=== PATIENT | male | born 1960 | race Hispanic/Latino ===

== ENCOUNTER 2019-12-02 17:48 | Emergency (ER) | payer MEDICAID ==
[2019-12-02 18:01] VITALS: BP 144/89
--- NOTE | 2019-12-02 18:05 | Emergency Department Report ---
Blank Doc - Documentation Documentation: 59-year-old male that presents with chest congestion, fatigue, cough. This initial assessment/diagnostic orders/clinical plan/treatment(s) is/are subject to change based on patient's health status, clinical progression and re- assessment by fellow clinical providers in the ED. Further treatment and workup at subsequent clinical providers discretion. Patient/guardians urged not to elope from the ED as their condition may be serious if not clinically assessed and managed. Initial orders include: 1- Patient sent to [facility] for further evaluation and treatment 2- CXR
--- NOTE | 2019-12-02 19:12 | XRay Report ---
CHEST PA AND LATERAL VIEWS INDICATION: cough. COMPARISON: None. FINDINGS: Support devices: None. Heart: Within normal limits. Lungs/Pleura: No acute pulmonary or pleural findings. There is a punctate round metallic foreign body anterior left lower thorax. This could be a fiducial marker, correlate clinically. IMPRESSION: 1. No acute findings. Signer Name: Dallas Mares MD Signed: 12/02/2019 7:08 PM Workstation Name: [id number]
== END 2019-12-02 22:30 | disposition left against medical advice (07) ==
LOC: ED 17:48
DX: R05 Cough (principal); R09.89 Other specified symptoms and signs involving the circulatory and respiratory systems; R53.83 Other fatigue; Z53.21 Procedure and treatment not carried out due to patient leaving prior to being seen by health care provider
CPT/HCPCS: 71046

== ENCOUNTER 2019-12-14 15:32 | Emergency (ER) | payer MEDICAID ==
[2019-12-14 15:40] VITALS: BP 136/87
--- NOTE | 2019-12-14 16:18 | XRay Report ---
RIGHT FOREARM RADIOGRAPH 2 VIEWS INDICATION / CLINICAL INFORMATION: right foream/wrist injury COMPARISON: None available. FINDINGS: BONES / JOINT(S): There is a mildly displaced fracture of the distal radial metaphysis. No definite i ntra-articular extension identified on these projections, though dedicated wrist radiographs may bett er assess. Mildly displaced ulnar styloid avulsion fracture. SOFT TISSUES: Soft tissue swelling about the wrist. ADDITIONAL FINDINGS: None. Signer Name: Melissa Foley MD Signed: 12/14/2019 4:14 PM Workstation Name: [id number]
--- NOTE | 2019-12-14 16:34 | Emergency Department Report ---
ED Upper Extremity Inj HPI - General Chief Complaint: Extremity Injury, Upper Stated Complaint: RIGHT ARM INJURY Time Seen by Provider: 12/14/19 16:02 Source: patient Mode of arrival: Ambulatory Limitations: No Limitations - History of Present Illness Initial Comments: 59-year-old male presents to the emergency room complaining of right wrist pain and swelling after a fall while in the garden. Patient states that he had fallen back and try to brace himself with his right hand. Patient reports he has a past medical history of kidney and liver transplant and is currently on CellCept and Prograf. Patient denies hitting his head or having loss of consciousness. MD Complaint: Injury to:: right, wrist -: This afternoon Other Extremity Injury: Wrist: Right Handedness: right Place: home Severity scale (0 -10): 8 Improves With: immobilization Worsens With: immobilization Context: fall Associated Symptoms: denies other symptoms - Related Data Home Medications Medication Instructions Recorded Confirmed Last Taken Aspirin [Aspirin BABY CHEW TAB] 81 mg PO QDAY 11/15/14 12/20/15 1 Day Ago ~12/19/15 Escitalopram [Lexapro] 10 mg PO DAILY 11/15/14 12/20/15 1 Day Ago ~12/19/15 Tacrolimus [Prograf] 1 mg PO Q12H 11/15/14 12/20/15 1 Day Ago ~12/19/15 Metoprolol [Lopressor] 25 mg PO DAILY 12/20/15 12/20/15 1 Day Ago ~12/19/15 Multivitamin with Iron 1 tab PO DAILY 12/20/15 12/20/15 1 Day Ago [Multivitamins with Iron] ~12/19/15 Mycophenolate [Cellcept] 500 mg PO BID 12/20/15 12/20/15 1 Day Ago ~12/19/15 Previous Rx's Medication Instructions Recorded Last Taken Type Cyclobenzaprine [Flexeril] 10 mg PO TID PRN #10 tablet 12/20/15 Unknown Rx HYDROcodone/APAP 5-325 [[place] 1 each PO Q6HR PRN #14 tablet 12/20/15 Unknown Rx 5/325] HYDROcodone/APAP 10-325 [[place] 1 each PO Q8HR PRN #12 tablet 12/14/19 Unknown Rx 10-325 mg TAB] Allergies Allergy/AdvReac Type Severity Reaction Status Date / Time codeine Allergy Hives Verified 11/15/14 15:38 ED Review of Systems ROS: Stated complaint: RIGHT ARM INJURY Other details as noted in HPI ED Past Medical Hx - Past Medical History Previous Medical History?: Yes Hx Hypertension: Yes Additional medical history: 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 - Surgical History Past Surgical History?: Yes Additional Surgical History: liver and right kidney transplant - Social History Smoking Status: Current Every Day Smoker - Medications Home Medications: Home Medications Medication Instructions Recorded Confirmed Last Taken Type Aspirin [Aspirin BABY CHEW TAB] 81 mg PO QDAY 11/15/14 12/20/15 1 Day Ago History ~12/19/15 Escitalopram [Lexapro] 10 mg PO DAILY 11/15/14 12/20/15 1 Day Ago History ~12/19/15 Tacrolimus [Prograf] 1 mg PO Q12H 11/15/14 12/20/15 1 Day Ago History ~12/19/15 Cyclobenzaprine [Flexeril] 10 mg PO TID PRN #10 tablet 12/20/15 Unknown Rx HYDROcodone/APAP 5-325 [[place] 1 each PO Q6HR PRN #14 tablet 12/20/15 Unknown Rx 5/325] Metoprolol [Lopressor] 25 mg PO DAILY 12/20/15 12/20/15 1 Day Ago History ~12/19/15 Multivitamin with Iron 1 tab PO DAILY 12/20/15 12/20/15 1 Day Ago History [Multivitamins with Iron] ~12/19/15 Mycophenolate [Cellcept] 500 mg PO BID 12/20/15 12/20/15 1 Day Ago History ~12/19/15 HYDROcodone/APAP 10-325 [[place] 1 each PO Q8HR PRN #12 tablet 12/14/19 Unknown Rx 10-325 mg TAB] ED Physical Exam - General Limitations: No Limitations General appearance: alert, in no apparent distress - Head Head exam: Present: atraumatic, normocephalic - Eye Eye exam: Present: normal appearance - ENT ENT exam: Present: mucous membranes moist - Expanded Upper Extremity Exam Right General: Present: other Forearm Wrist exam: Present: full ROM, tenderness, swelling Hand Wrist exam: Present: full ROM, tenderness, swelling Vascular: Present: vascular compromise, normal capillary refill - Back Exam Back exam: Present: normal inspection - Neurological Exam Neurological exam: Present: alert, oriented X3 - Psychiatric Psychiatric exam: Present: normal affect, normal mood - Skin Skin exam: Present: warm, dry, intact, normal color. Absent: rash ED Course Vital Signs 12/14/19 12/14/19 15:37 16:58 Temperature 98.1 F Pulse Rate 89 Respiratory 18 20 Rate Blood Pressure 136/87 O2 Sat by Pulse 98 Oximetry ED Medical Decision Making - Radiology Data Radiology results: report reviewed Referring Physician:GLORY DOCPatient Name:AWILDA LUNSFORDPatient ID:[id number] of :[id number]:MaleAccession:[id number] Date:[id number] Status:Finalized Findings [facility] [address] [place] [address] XRay Report Signed Patient: AWILDA LUNSFORD MR#: [id number] 1 : 1960 Acct:[id number] Age/Sex: 59 / M ADM Date: 12/14/19 Loc: ED Attending Dr: Ordering Physician: GLORY LYN MD Date of Service: 12/14/19 Procedure(s): XR forearm RT Accession Number(s): [id number] cc: GLORY LYN MD Fluoro Time In Minutes: RIGHT FOREARM RADIOGRAPH 2 VIEWS INDICATION / CLINICAL INFORMATION: right foream/wrist injury COMPARISON: None available. FINDINGS: BONES / JOINT(S): There is a mildly displaced fracture of the distal radial metaphysis. No definite intra-articular extension identified on these projections, though dedicated wrist radiographs may better assess. Mildly displaced ulnar styloid avulsion fracture. SOFT TISSUES: Soft tissue swelling about the wrist. ADDITIONAL FINDINGS: None. Signer Name: Melissa Foley MD Signed: 12/14/2019 4:14 PM Workstation Name: [id number] Transcribed By: [facility] Dictated By: Melissa Foley MD Electronically Authenticated By: Melissa Foley MD Signed Date/Time: 12/14/191613 DD/ 10 TD/TT: - Medical Decision Making 59-year-old male presents to the emergency room complaining of right wrist pain and swelling after a fall while in the garden. Patient states that he had fallen back and try to brace himself with his right hand. Patient reports he has a past medical history of kidney and liver transplant and is currently on CellCept and Prograf. Patient denies hitting his head or having loss of consciousness. right wrist fracture. Patient was given pain medication placed in a volar splint referred to Dr. Alvarado. Critical care attestation.: If time is entered above; I have spent that time in minutes in the direct care of this critically ill patient, excluding procedure time. ED Disposition Clinical Impression: Right wrist fracture Qualifiers: Encounter type: initial encounter Fracture type: closed Qualified Code(s): S62.101A - Fracture of unspecified carpal bone, right wrist, initial encounter for closed fracture Fall Qualifiers: Encounter type: initial encounter Qualified Code(s): W19.XXXA - Unspecified fall, initial encounter Disposition: TO HOME OR SELFCARE Is pt being admited?: No Does the pt Need Aspirin: No Condition: Stable Instructions: Wrist Fracture in Adults (ED) Additional Instructions: Please take pain medication as needed do not operate heavy machinery while taking pain medication. It is very important for you to follow-up with orthopedic provider. Prescriptions: HYDROcodone/APAP 10-325 [[place] 10-325 mg TAB] 1 each PO Q8HR PRN #12 tablet PRN Reason: Pain , Severe (7-10) Referrals: PRIMARY CAREMD [Primary Care Provider] - 3-5 Days CECILIA ALVARADO MD [Staff Physician] - 3-5 Days
[2019-12-14] MEDS ORDERED: HYDROcodone/ACETAMINOPHEN 10-325MG TAB PO ONE (16:38)
== END 2019-12-14 18:00 | disposition home or self-care (01) ==
LOC: ED 15:32
DX: S52.512A Displaced fracture of left radial styloid process, initial encounter for closed fracture (principal); S52.611A Displaced fracture of right ulna styloid process, initial encounter for closed fracture; I10 Essential (primary) hypertension; F17.200 Nicotine dependence, unspecified, uncomplicated; Z98.890 Other specified postprocedural states; Z79.899 Other long term (current) drug therapy; Z88.8 Allergy status to other drugs, medicaments and biological substances; W19.XXXA Unspecified fall, initial encounter; Y93.89 Activity, other specified; Y92.89 Other specified places as the place of occurrence of the external cause; Y99.8 Other external cause status